=== PATIENT | female | born 1970 | race African-American/Black ===

== ENCOUNTER 2018-02-02 09:32 | Outpatient (CLI) | payer OTHER ==
--- NOTE | 2018-02-02 15:15 | MRI Report ---
Procedure Date: 02/02/2018 Accession Number: [id number] / [id number] Procedure: MRI - Lower Leg (Tib-Fib) LT W/O CPT Code: 89948 FULL RESULT: EXAM: LEFT CALF/TIBIA MRI WITHOUT CONTRAST EXAM DATE: 02/02/2018 10:24 AM. CLINICAL HISTORY: Pain in unspecified lower leg. COMPARISON: None. TECHNIQUE: Multiplanar, multisequence T1-weighted and fluid-sensitive sequences of the calf/tibia without contrast. Other: None. FINDINGS: Bones: No fractures or subluxations. No marrow edema. No bone lesions. Joint Spaces: Knee joint on the large [id number] images has a normal appearance, ankle is not included. Tendons: Tendons appear intact where visualized. Musculature: There is significant nonspecific fatty infiltration of the muscles of the posterior compartment including the gastrocnemius and soleus. Series 301 image 14 for example. Other: Significant edematous change is also seen over the posterior aspect of the subcutaneous soft tissues of the posterior calf, this is in a location which is marked. No drainable fluid collections or abscesses are noted. IMPRESSION: Significant nonspecific fatty infiltration of the mid posterior calf muscle bundles, primarily the gastrocnemius and soleus. 2. Edematous change seen over the posterior aspect of the cutaneous soft tissues in the posterior calf, nonspecific. No drainable fluid collections or abscesses. [facility] MUSCULOSKELETAL RADIOLOGY SECTION
== END 2018-02-02 09:33 | disposition home or self-care (01) ==
LOC: DI 09:32
PROVIDERS: ATTEND Family Medicine
DX: R60.0 Localized edema (principal); M79.662 Pain in left lower leg